=== PATIENT | female | born 1990 | race American Indian/Alaskan Native ===

== ENCOUNTER 2019-05-21 08:59 | Observation (INO) | payer MEDICAID ==
[2019-05-22 14:20] VITALS: BP 104/40
== END 2019-05-22 16:38 | disposition home or self-care (01) ==
LOC: ED 08:59 → INTOOBSV 10:50 → 3A 10:50
PROVIDERS: ADMIT Internal Medicine; ATTEND Internal Medicine
DX: D57.00 Hb-SS disease with crisis, unspecified (principal); D64.9 Anemia, unspecified; R09.02 Hypoxemia; R17 Unspecified jaundice; R53.1 Weakness; Z90.49 Acquired absence of other specified parts of digestive tract
CPT/HCPCS: 36415; 36430; 71045; 80048; 80053; 81001; 83615; 84703; 85007; 85025; 85045; 85610; 85660; 85730; 86850; 86900; 86901; 86920; 87116; 96374; 96375; 99291; G0378; J1200; J2270; J7030; J7040; P9016

== ENCOUNTER 2019-06-22 12:27 | Emergency (ER) | payer MEDICAID | END 2019-06-22 19:07 | disposition left against medical advice (07) | LOC: ED 12:27 | DX: R68.84 Jaw pain (principal); Z53.21 Procedure and treatment not carried out due to patient leaving prior to being seen by health care provider ==

== ENCOUNTER 2021-03-29 11:45 | Outpatient (CLI) | payer OTHER ==
[2021-03-29 14:48] LABS: Hematocrit 20.1 % (30.3-42.9); Hemoglobin 7.2 gm/dl (10.1-14.3); Mean Corpuscular HGB Conc 36 % (30-34); Mean Corpuscular Volume 101 fl (79-97); Platelet Count 360 K/mm3 (140-440); Red Blood Count 1.99 M/mm3 (3.65-5.03)
[2021-03-29 14:51] LABS: Red Cell Distribution Width 22.8 % (13.2-15.2)
[2021-03-29 17:23] LABS: Basophils # (Auto) 0.2 K/mm3 (0.0-0.1); Eosinophils # (Auto) 0.9 K/mm3 (0.0-0.4); Eosinophils % (Auto) 8.3 % (0.0-4.3); Monocytes # (Auto) 1.1 K/mm3 (0.0-0.8); Monocytes % (Auto) 10.3 % (0.0-7.3)
[2021-03-29 22:54] LABS: Total Cells Counted 100
[2021-03-29 23:02] LABS: Anisocytosis 1+
[2021-03-29 23:03] LABS: Platelet Estimate Consistent w Auto; Sickle Cells 1+
== END 2021-03-29 11:46 | disposition home or self-care (01) ==
LOC: LAB 11:45
PROVIDERS: ATTEND Internal Medicine
DX: Z02.71 Encounter for disability determination (principal); D57.1 Sickle-cell disease without crisis
CPT/HCPCS: 36415; 85007; 85025